=== PATIENT | female | born 1960 | race Two or more races ===

== ENCOUNTER → 2024-09-17 | Outpatient (CLI) | payer BC, SELFPAY ==
--- NOTE | 2024-09-17 09:00 | XR_ITS ---
Examination: Screening digital mammography, bilateral Computer aided detection 3-D breast Tomosynthesis, bilateral Date and time of exam: September 17, 2024 0854 hours Compared to mammograms dating to March 08, 2022, November 14, 2016 Indication: Screening Technique: Nonmagnified MLO, CC views of the breasts to been obtained, reconstructed from 3-D Tomosynthesis images. R2 computer aided detection program utilized for evaluation of suspicious masses and/or abnormal calcifications. 3-D Tomosynthesis images obtained. Findings: The breasts are heterogeneously dense, which may obscure small masses Benign calcifications. No interval suspicious masses Impression: BI-RADS category II: Benign Findings. Recommend 1 year follow-up mammogram.
== END | disposition home or self-care (01) ==
PROVIDERS: PCP Family Medicine; Referring Provider Family Medicine; Visit Provider Family Medicine
DX: Z12.31 Encounter for screening mammogram for malignant neoplasm of breast (principal); R92.323 Mammographic fibroglandular density, bilateral breasts; R92.1 Mammographic calcification found on diagnostic imaging of breast
CPT/HCPCS: 77063; 77067

== ENCOUNTER → 2024-12-08 | Outpatient (CLI) | payer SELFPAY ==
[2024-12-08 11:34] LABS: Basophils % (Auto) 1 % (0-2.5); Eosinophils # (Auto) 0.1 Thou/mm3 (0.0-0.5); Eosinophils % (Auto) 2 % (0-10); Hematocrit 35.5 % (36.0-46.0); Immature Granulocytes % (Auto) 0 % (0-0); Immature Granulocytes Auto 0.01 Thou/mm3 (0.00-0.00); Lymphocytes # (Auto) 1.9 Thou/mm3 (1.0-4.8); Lymphocytes % (Auto) 40 % (10-50); Mean Corpuscular HGB Conc 33.8 g/dl (31.0-37.0); Mean Corpuscular Hemoglobin 28.9 pg (25.0-35.0); Mean Corpuscular Volume 86 fL (80-100); Monocytes # (Auto) 0.3 Thou/mm3 (0.0-0.8); Monocytes % (Auto) 7 % (0-12); Neutrophils # (Auto) 2.3 Thou/mm3 (1.8-7.7); Neutrophils % (Auto) 49 % (37-80); Nucleated Red Blood Cell % 0 /100 WBC (0); Platelet Count 280 Thou/mm3 (140-440); RDW Standard Deviation 39.1 fL (36.4-46.3); Red Blood Count 4.15 Miln/mm3 (4.00-5.20); White Blood Count 4.6 Thou/mm3 (3.6-11.0)
[2024-12-08 11:49] LABS: Alanine Aminotransferase 19 U/L (10-49); Albumin, Serum 5.1 gm/dL (3.4-4.8); Alkaline Phosphatase 63 U/L (46-116); Anion Gap 7 (7-16); Aspartate Amino Transferase 27 U/L (0-34); BUN/Creatinine Ratio 23 Ratio (12-20); Bilirubin,Direct 0.4 mg/dL (0.0-0.3); Bilirubin,Total 1.7 mg/dL (0.3-1.2); Blood Urea Nitrogen 16 mg/dL (9-23); Calcium 9.9 mg/dL (8.3-10.6); Carbon Dioxide 28.5 mMol/L (20.0-31.0); Cardiac Risk Estimate 4.1 RATIO (3.7-5.6); Chloride 105 mMol/L (98-107); Cholesterol 162 mg/dL (132-200); Creatinine (Component) 0.7 mg/dL (0.6-1.3); Glucose 138 mg/dL (74-106); HDL Cholesterol 40 mg/dL (40-60); LDL Cholesterol,Calculated 82 mg/dL (0-130); Osmolality,Calculated 282 (275-295); Potassium 4.6 mMol/L (3.4-5.1); Sodium 140 mMol/L (136-145); Total Protein 7.7 gm/dL (5.7-8.2); Triglycerides 198 mg/dL (30-150); eGFR > 60 See Note
[2024-12-08 11:50] LABS: Creatinine MALB Rnd Ur 23 mg/dL (30-125); Microalbumin, Random Urine < 3 mg/L (0-300)
[2024-12-08 11:53] LABS: Glucose Estimated Average 157 mg/dL (80-131); Hemoglobin A1C 7.1 % Hgb (4.8-6.0)
== END | disposition home or self-care (01) ==
LOC: COPL 10:08
PROVIDERS: PCP Family Medicine; Referring Provider Family Medicine; Visit Provider Family Medicine
DX: E78.1 Pure hyperglyceridemia (principal); E11.9 Type 2 diabetes mellitus without complications; I10 Essential (primary) hypertension
CPT/HCPCS: 36415; 80048; 80061; 80076; 82043; 82570; 83036; 85025

== ENCOUNTER → 2025-03-24 | Outpatient (CLI) | payer BC, SELFPAY ==
[2025-03-28 07:46] LABS: Fecal Globin Result NOT DETECTED (NOT DETECTED)
== END | disposition home or self-care (01) ==
LOC: SLDO 09:25
PROVIDERS: PCP Family Medicine; Referring Provider Family Medicine; Visit Provider Family Medicine
DX: Z12.11 Encounter for screening for malignant neoplasm of colon (principal); Z12.12 Encounter for screening for malignant neoplasm of rectum
CPT/HCPCS: 82274; G0328